=== PATIENT | female | born 1990 | race Caucasian/White ===

== ENCOUNTER 2017-02-28 15:14 | Emergency (ER) | payer BC, OTHER ==
[~2017-02-28] VITALS: Ht 165.1 cm; Wt 56.7 kg
[2017-02-28 16:10] VITALS: BP 130/85
[2017-02-28] MEDS ORDERED: KETOROLAC TROMETH 60MG/2ML VIAL IM ONE (16:45)
[2017-02-28] MEDS ORDERED: ONDANSETRON ODT 4 MG TAB PO ONE (16:45)
== END 2017-02-28 17:20 | disposition home or self-care (01) ==
LOC: ER 15:22
DX: G89.29 Other chronic pain (principal); M54.5 Low back pain; M41.9 Scoliosis, unspecified; Z88.8 Allergy status to other drugs, medicaments and biological substances
CPT/HCPCS: 81002; 96372; 99283; J1885; Q0162